=== PATIENT | male | born 1965 | race Caucasian/White ===

== ENCOUNTER 2023-11-17 14:59 | Inpatient (IN) ==
[2023-11-17] MEDS ORDERED: Metoprolol Tartrate 5 mg VIAL 5 ml VIAL (1 mg/ml) IV ONE (15:46)
[2023-11-17 16:42] LABS: ABS Lymphocytes 0.8 10^3/uL (1.0-4.8); ABS Monocytes 0.4 10^3/uL (0.0-1.1); ABS Neutrophils 12.2 10^3/uL (1.5-7.6); Eosinophil % 0.3 %; Hematocrit 43.4 % (38-53); Hemoglobin 14.9 g/dL (13.2-16.3); Lymphocyte % 5.8 %; Mean Corpuscular Hemoglobin 31.3 pg (27-33); Mean Corpuscular Hgb Conc 34.3 g/dL (31-36); Mean Corpuscular Volume 91.2 fL (80-97); Mean Platelet Volume 7.3 fL (7.5-11.2); Platelet Count 264 10^3/uL (150-450); Red Blood Count 4.76 10^6/uL (4.06-5.63); Red Cell Distribution Width 13.5 % (12-17); White Blood Count 13.4 10^3/uL (3.6-10.2)
[2023-11-17 17:04] LABS: Albumin 4.5 g/dL (3.2-5.2); Albumin/Globulin Ratio 1.5 (1-3); Calcium 10.8 mg/dL (8.6-10.3); Creatinine, Serum 1.37 mg/dL (0.67-1.17); Globulin 3.1 g/dL (2-4); Potassium 4.3 mmol/L (3.5-5.0); Total Bilirubin 0.4 mg/dL (0.2-1.0); Total Protein 7.6 g/dL (6.4-8.9); eGFR CKD-EPI 59.8 (>60)
[2023-11-17 18:11] LABS: High Sensitivity Troponin 1 Hr 16 pg/mL (<20)
[2023-11-18 00:51] LABS: HDL Cholesterol 41.1 mg/dL
[2023-11-18 05:29] VITALS: BP 115/92
[2023-11-18 06:36] LABS: C Reactive Protein 1.42 mg/L (<8.01); Calcium 9.9 mg/dL (8.6-10.3); Creatinine, Serum 1.33 mg/dL (0.67-1.17)
[2023-11-18] MEDS ORDERED: Sulfur Hexaflouride MICROSPHR 25 MG VIAL ONE (08:50)
[2023-11-18 09:39] LABS: Erythrocyte Sed Rate 13 mm/Hr (0-19)
[2023-11-18] MEDS ORDERED: LORazepam 2 mg VIAL 1 ml IV PUSH ONE (10:16)
[2023-11-18] MEDS ORDERED: Lorazepam PYXIS KEY PRN (10:16)
[2023-11-18 10:46] LABS: ABS Eosinophils 0.1 10^3/uL (0.0-0.5); ABS Monocytes 0.6 10^3/uL (0.0-1.1); ABS Neutrophils 5.4 10^3/uL (1.5-7.6); ABS Nucleated RBC 0.01 10^3/ul; Eosinophil % 1.8 %; Hematocrit 37.6 % (38-53); Hemoglobin 12.8 g/dL (13.2-16.3); Lymphocyte % 14.5 %; Mean Corpuscular Hemoglobin 31.2 pg (27-33); Mean Corpuscular Volume 91.8 fL (80-97); Mean Platelet Volume 8.2 fL (7.5-11.2); Nucleated Red Blood Cells % 0.1 %/100WBC (0.0-0.8); Platelet Count 241 10^3/uL (150-450); Red Blood Count 4.09 10^6/uL (4.06-5.63); Red Cell Distribution Width 13.6 % (12-17); White Blood Count 7.1 10^3/uL (3.6-10.2)
== END 2023-11-18 15:50 | disposition home or self-care (01) | DRG 199 ==
LOC: ED 14:59 → EDHOLD 22:21 → SUATTDRO 22:21 → MEDTELE 11-18 00:17
PROVIDERS: ADMIT Hospitalist; ATTEND Hospitalist

== ENCOUNTER 2024-02-09 14:36 | Observation (INO) ==
[2024-02-09 15:55] LABS: ABS Basophils 0.1 10^3/uL (0.0-0.1); ABS Eosinophils 0.1 10^3/uL (0.0-0.5); ABS Lymphocytes 1.1 10^3/uL (1.0-4.8); ABS Monocytes 0.6 10^3/uL (0.0-1.1); ABS Neutrophils 7.4 10^3/uL (1.5-7.6); Eosinophil % 0.7 %; Hematocrit 32.6 % (38-53); Hemoglobin 11.3 g/dL (13.2-16.3); Mean Corpuscular Hemoglobin 32.3 pg (27-33); Mean Corpuscular Hgb Conc 34.6 g/dL (31-36); Mean Corpuscular Volume 93.4 fL (80-97); Mean Platelet Volume 7.9 fL (7.5-11.2); Platelet Count 217 10^3/uL (150-450); Red Blood Count 3.49 10^6/uL (4.06-5.63); Red Cell Distribution Width 14.7 % (12-17); White Blood Count 9.2 10^3/uL (3.6-10.2)
[2024-02-09 16:47] LABS: Albumin 3.8 g/dL (3.2-5.2); Albumin/Globulin Ratio 1.7 (1-3); Calcium 9.2 mg/dL (8.6-10.3); Creatinine, Serum 3.35 mg/dL (0.67-1.17); Globulin 2.3 g/dL (2-4); Magnesium 2.3 mg/dL (1.9-2.7); Total Bilirubin 0.3 mg/dL (0.2-1.0); Total Protein 6.1 g/dL (6.4-8.9); eGFR CKD-EPI 20.4 (>60)
[2024-02-09 17:30] LABS: High Sensitivity Troponin 1 Hr 10 pg/mL (<20)
[2024-02-09] MEDS: Lactated Ringers 1000 ml BAG 1,000 ML IV ONE ×2 (17:59→18:35)
[2024-02-09 22:36] LABS: TSH Ultra Thyroid Stim Horm 1.56 mcIU/mL (0.34-5.60)
[2024-02-09 22:44] LABS: Ferritin 82.2 ng/mL (24-336)
[2024-02-09 22:47] LABS: Folate 8.98 ng/mL (5.90-24.80)
[2024-02-09 23:49] LABS: Creatine Kinase 120 U/L (10-223)
[2024-02-10] MEDS: Lactated Ringers 1000 ml BAG 1,000 ML IV ONE ×2 (03:47→16:07)
[2024-02-10 04:09] LABS: Urine Appearance Clear; Urine Bilirubin Negative (Negative); Urine Blood Negative (Negative); Urine Color Light-Yellow; Urine Glucose Negative (Negative); Urine Ketones Negative (Negative); Urine Nitrite Negative (Negative); Urine Protein Negative (Negative); Urine Specific Gravity 1.014 (1.002-1.030); Urine Urobilinogen Negative (Negative)
[2024-02-10 05:59] LABS: ABS Eosinophils 0.1 10^3/uL (0.0-0.5); ABS Lymphocytes 1.4 10^3/uL (1.0-4.8); ABS Monocytes 0.4 10^3/uL (0.0-1.1); ABS Neutrophils 3.9 10^3/uL (1.5-7.6); ABS Nucleated RBC 0.01 10^3/ul; Eosinophil % 1.4 %; Hematocrit 33.3 % (38-53); Hemoglobin 11.6 g/dL (13.2-16.3); Mean Corpuscular Hemoglobin 32.3 pg (27-33); Mean Corpuscular Hgb Conc 34.7 g/dL (31-36); Mean Corpuscular Volume 93.1 fL (80-97); Mean Platelet Volume 7.6 fL (7.5-11.2); Nucleated Red Blood Cells % 0.1 %/100WBC (0.0-0.8); Platelet Count 192 10^3/uL (150-450); Red Blood Count 3.58 10^6/uL (4.06-5.63); Red Cell Distribution Width 14.4 % (12-17); White Blood Count 5.8 10^3/uL (3.6-10.2)
[2024-02-10 06:57] LABS: Calcium 9.4 mg/dL (8.6-10.3); Creatinine, Serum 2.7 mg/dL (0.67-1.17); Magnesium 2.1 mg/dL (1.9-2.7); Phosphorus 3.1 mg/dL (2.5-5.0); Potassium 4.2 mmol/L (3.5-5.0); eGFR CKD-EPI 26.5 (>60)
[2024-02-10] MEDS: Cyanocobalamin INJ 1,000 MCG/ML VIAL 1 ML VIAL IM ONE (08:35)
[2024-02-10] MEDS: Heparin 5000 UNITS/ML 1 mL VIAL SUBCUT SCH (08:35)
[2024-02-10 15:19] LABS: Calcium 9.4 mg/dL (8.6-10.3); Creatinine, Serum 2.23 mg/dL (0.67-1.17); Potassium 4.8 mmol/L (3.5-5.0); eGFR CKD-EPI 33.3 (>60)
[2024-02-11 05:47] LABS: Calcium 9.4 mg/dL (8.6-10.3); Creatinine, Serum 2.03 mg/dL (0.67-1.17); Magnesium 2.2 mg/dL (1.9-2.7); Potassium 4.6 mmol/L (3.5-5.0); eGFR CKD-EPI 37.3 (>60)
[2024-02-11] MEDS: Cyanocobalamin INJ 1,000 MCG/ML VIAL 1 ML VIAL IM ONE (08:45)
[2024-02-11] MEDS: Fluticasone NASAL SPRAY 50MCG 16 gm SPRAY BTL BOTH NARES SCH (11:33)
[2024-02-11 13:58] VITALS: BP 153/75
== END 2024-02-11 16:00 | disposition home or self-care (01) ==
LOC: EDHOLD 14:36 → ED 14:36 → SUATTDRO 18:28 → MEDTELE 20:15
PROVIDERS: ADMIT Internal Medicine; ATTEND Hospitalist